=== PATIENT | male | born 1960 | race American Indian/Alaskan Native ===

== ENCOUNTER 2018-03-24 11:49 | Inpatient (IN) | payer OTHER ==
[2018-03-24 12:04] VITALS: BMI 29.8
--- NOTE | 2018-03-24 12:38 | ED PDOC ---
HPI: Psych/Substance Abuse Time Seen by Provider: 03/24/18 12:15 Chief Complaint (Nursing): Psychiatric Evaluation Chief Complaint (Provider): Psychiatric Evaluation History Per: Patient History/Exam Limitations: clinical condition (poor historian) Additional Complaint(s): 57 year old patient presents to emergency department for psychiatric evaluation. Patient reports that he is a schizophrenic and has bipolar disorder. He states that he has been off his medication for quiet some time and further states he is "trying to get his equilibrium back." Patient has been noted to be a poor historian with tangent thoughts. He reports to have auditory hallucinations but denies visual hallucinations. Patient further states, "He is afraid of what he may do." When asked if patient has SI or HI he responded with "Stop asking me these questions before I lose it".Other psychiatric symptoms: (+) auditory hallucinations, (?) suicidal ideation, (?) homicidal ideation (-) substance abuse. No physical complaints at present. PMD: refused to answer Past Medical History Reviewed: Historical Data, Nursing Documentation, Vital Signs Vital Signs: Last Vital Signs Temp 97 F L 03/24/18 12:22 Pulse 74 03/24/18 12:22 Resp 19 03/24/18 12:22 BP 117/77 03/24/18 12:22 Pulse Ox 97 03/24/18 12:22 - Medical History PMH: Bipolar Disorder, Schizophrenia - Surgical History Surgical History: No Surg Hx - Family History Family History: States: Unknown Family Hx - Home Medications Home Medications: Ambulatory Orders Medication Instructions Recorded Famotidine [Acid Controller] 20 mg PO BID 03/24/18 Melatonin [Melatin] 3 mg PO HS 03/24/18 QUEtiapine [SEROquel] 300 mg PO HS 03/24/18 Thiamine [Vitamin B-1] 100 mg PO DAILY 03/24/18 - Allergies Allergies/Adverse Reactions: Allergies Allergy/AdvReac Type Severity Reaction Status Date / Time No Known Allergies Allergy Verified 03/24/18 12:29 Review of Systems ROS Statement: Except As Marked, All Systems Reviewed And Found Negative Psych: Positive for: Psychosis ((+) auditory hallucinations) Physical Exam - Reviewed Nursing Documentation Reviewed: Yes Vital Signs Reviewed: Yes - Physical Exam Comments: GENERAL APPEARANCE: Patient is awake, alert; agitated, uncooperative with questions, has poor hygiene. SKIN: Warm, dry; (-) cyanosis ENMT: Mucous membranes moist. Airway patent: (-) stridor. NECK: Supple HEART AND CARDIOVASCULAR: (-) irregularity CHEST AND RESPIRATORY: (-) rales, (-) rhonchi, (-) wheezes; breath sounds equal bilaterally. Respirations even and nonlabored. ABDOMEN: Soft, (-) distention, (-) tenderness, (-) guarding. NEURO AND PSYCH: (+) tangent thoughts. Mental status as above, (-) facial asymmetry. Gait: steady. Speech: clear. - Laboratory Results Result Diagrams: 03/24/18 15:25 03/24/18 15:25 - ECG O2 Sat by Pulse Oximetry: 97 (RA) Pulse Ox Interpretation: Normal Medical Decision Making Medical Decision Making: Time: 12:30 Impression: Schizophrenia and bipolar disorder Plan: --Crisis evaluation --1:1 observation 13:05 Crisis is evaluating patient at bedside. 1400 On re-evaluation, patient appears preoccupied. Patient is speaking to himself. No distress noted. 1505 Per crisis evaluation, patient to be admitted for schizoaffective disorder, per Dr Wagner. CBC, CMP, Serum Alcohol, U/A, Urine Drug Screen, CXR, and EKG ordered. 1545 CBC and CMP unremarkable. Serum alcohol <10. Patient tolerating PO intake on re-evaluation, resting comfortably. 1557 EKG: NSR at 71 bpm, (-) ST elevations. QTc: 428 ms. 1725 CXR Date of service: 03/24/2018 HISTORY: psych admission COMPARISON: No prior. FINDINGS: LUNGS: No active pulmonary disease. PLEURA: No significant pleural effusion identified, no pneumothorax apparent. CARDIOVASCULAR: No aortic atherosclerotic calcification present. Normal cardiac size. No pulmonary vascular congestion. OSSEOUS STRUCTURES: No significant abnormalities. VISUALIZED UPPER ABDOMEN: Normal. OTHER FINDINGS: None. IMPRESSION: No acute cardiopulmonary disease appreciated. 1740 U/A (-) evidence of UTI Urine Drug Screen: Negative Patient is medically stable for psychiatric admission. Arrangements made for admission, patient agreeable to admission. Vitals stable. Scribe Attestation: Documented by Larry Crook, acting as a scribe for Shobha Malagon Provider Scribe Attestation: All medical record entries made by the Scribe were at my direction and personally dictated by me. I have reviewed the chart and agree that the record accurately reflects my personal performance of the history, physical exam, medical decision making, and the department course for this patient. I have also personally directed, reviewed, and agree with the discharge instructions and disposition. Disposition - Clinical Impression Clinical Impression: Schizoaffective disorder - Patient ED Disposition Is Patient to be Admitted: Yes Counseled Patient/Family Regarding: Studies Performed, Diagnosis - Disposition Disposition Time: 17:40 Condition: FAIR - Pt Status Changed To: Hospital Disposition Of: Inpatient - Admit Certification Admit to Inpatient:: After my assessment, the patient will require hospitalization for at least two midnights. This is because of the severity of symptoms shown, intensity of services needed, and/or the medical risk in this patient being treated as an outpatient. - POA Present On Arrival: None Results - Diagnostic Imaging Results Radiology Results Chest X-Ray 03/24/18 15:09 IMPRESSION: No acute cardiopulmonary disease appreciated. - Lab Results Lab Results: 03/24/18 03/24/18 03/24/18 17:09 17:09 15:25 WBC RBC Hgb Hct MCV MCH MCHC RDW Plt Count MPV Neut % (Auto) Lymph % (Auto) Moore % (Auto) Eos % (Auto) Baso % (Auto) Neut # (Auto) Lymph # (Auto) Moore # (Auto) Eos # (Auto) Baso # (Auto) Sodium 139 Potassium 3.6 Chloride 105 Carbon Dioxide 26 Anion Gap 12 BUN 16 Creatinine 1.1 Est GFR ( Amer) > 60 Est GFR (Non-Af Amer) > 60 Random Glucose 99 Calcium 8.7 Total Bilirubin 0.2 AST 47 ALT 32 Alkaline Phosphatase 72 Total Protein 6.7 Albumin 3.5 Globulin 3.2 Albumin/Globulin Ratio 1.1 Urine Color Yellow Urine Clarity Slighty-cloudy Urine pH 5.0 Ur Specific [place] 1.025 Urine Protein 30 Urine Glucose (UA) Neg Urine Ketones Negative Urine Blood Negative Urine Nitrate Negative Urine Bilirubin Negative Urine Urobilinogen 2.0 Ur Leukocyte Esterase Neg Urine RBC (Auto) 2 Urine Microscopic WBC 1 Urine Bacteria Rare Urine Opiates Screen Negative Urine Methadone Screen Negative Ur Barbiturates Screen Negative Ur Phencyclidine Scrn Negative Ur Amphetamines Screen Negative U Benzodiazepines Scrn Negative U Oth Cocaine Metabols Negative U Cannabinoids Screen Negative Alcohol, Quantitative < 10 03/24/18 15:25 WBC 5.2 RBC 4.06 L Hgb 11.6 L Hct 36.0 MCV 88.7 MCH 28.7 MCHC 32.3 L RDW 15.9 H Plt Count 113 L MPV 9.0 Neut % (Auto) 53.7 Lymph % (Auto) 29.8 Moore % (Auto) 14.5 H Eos % (Auto) 1.4 Baso % (Auto) 0.6 Neut # (Auto) 2.8 Lymph # (Auto) 1.6 Moore # (Auto) 0.8 Eos # (Auto) 0.1 Baso # (Auto) 0.0 Sodium Potassium Chloride Carbon Dioxide Anion Gap BUN Creatinine Est GFR ( Amer) Est GFR (Non-Af Amer) Random Glucose Calcium Total Bilirubin AST ALT Alkaline Phosphatase Total Protein Albumin Globulin Albumin/Globulin Ratio Urine Color Urine Clarity Urine pH Ur Specific [place] Urine Protein Urine Glucose (UA) Urine Ketones Urine Blood Urine Nitrate Urine Bilirubin Urine Urobilinogen Ur Leukocyte Esterase Urine RBC (Auto) Urine Microscopic WBC Urine Bacteria Urine Opiates Screen Urine Methadone Screen Ur Barbiturates Screen Ur Phencyclidine Scrn Ur Amphetamines Screen U Benzodiazepines Scrn U Oth Cocaine Metabols U Cannabinoids Screen Alcohol, Quantitative
[2018-03-24 15:27] LABS: BASO % 0.6 % (0.0-2.0); EOS # 0.1 K/uL (0.0-0.7); EOS % 1.4 % (0.0-4.0); HEMOGLOBIN 11.6 g/dL (12.0-18.0); LYMPH # 1.6 K/uL (1.0-4.3); LYMPH % 29.8 % (20.0-40.0); MEAN CELL VOLUME 88.7 fl (80.0-94.0); MEAN CORPUSCULAR HEMOGLOBIN 28.7 pg (27.0-31.0); MEAN CORPUSCULAR HGB CONC 32.3 g/dL (33.0-37.0); MONO # 0.8 K/uL (0.0-0.8); MONO % 14.5 % (0.0-10.0); NEUT # 2.8 K/uL (1.8-7.0); NEUT % 53.7 % (50.0-75.0); NRBC % 0.1 % (0.0-0.0); RBC 4.06 Mil/uL (4.40-5.90); RED CELL DISTRIBUTION WIDTH 15.9 % (11.5-14.5); WHITE BLOOD COUNT 5.2 K/uL (4.8-10.8)
[2018-03-24 15:38] LABS: ALB/GLOB RATIO 1.1 (1.0-2.1); ALBUMIN 3.5 g/dL (3.5-5.0); ALT/SGPT 32 U/L (21-72); AST/SGOT 47 U/L (17-59); BLOOD UREA NITROGEN 16 mg/dl (9-20); CALCIUM 8.7 mg/dL (8.4-10.2); GFR NON-AFRICAN AMERICAN > 60
--- NOTE | 2018-03-24 16:28 | RAD ---
Date of service: 03/24/2018 HISTORY: psych admission COMPARISON: No prior. FINDINGS: LUNGS: No active pulmonary disease. PLEURA: No significant pleural effusion identified, no pneumothorax apparent. CARDIOVASCULAR: No aortic atherosclerotic calcification present. Normal cardiac size. No pulmonary vascular congestion. OSSEOUS STRUCTURES: No significant abnormalities. VISUALIZED UPPER ABDOMEN: Normal. OTHER FINDINGS: None. IMPRESSION: No acute cardiopulmonary disease appreciated.
[2018-03-24 17:33] LABS: URINE BACTERIA RARE (<OCC); URINE BILIRUBIN NEGATIVE (NEGATIVE); URINE BLOOD NEGATIVE (NEGATIVE); URINE CLARITY SLIGHTY-CLOUDY (Clear); URINE COLOR YELLOW (YELLOW); URINE GLUCOSE (UA) NEG (NEGATIVE); URINE LEUKOCYTE ESTERASE NEG Leu/uL (Negative); URINE PROTEIN 30 mg/dL (NEGATIVE)
[2018-03-24 17:35] LABS: BARBITURATES, UR NEGATIVE (NEGATIVE); BENZODIAZEPINES, UR NEGATIVE (NEGATIVE); OPIATES, UR NEGATIVE (NEGATIVE); PHENCYCLIDINE, UR NEGATIVE (NEGATIVE)
[2018-03-24] MEDS ORDERED: Magnesium Hydroxide Susp 30 ml UD PO PRN (20:20)
[2018-03-24] MEDS ORDERED: Alum-Mag Hydrox-Simethicone Susp (30 mL) PO PRN (20:20)
[2018-03-24 20:34] VITALS: O2SAT 97
[2018-03-24] MEDS: DiphenhydrAMINE 50 mg/ml Inj IM PRN (20:37)
--- NOTE | 2018-03-24 21:03 | PCM.BM ---
<Shahnaz Simon - Last Filed: 03/24/18 20:55> Treatment Plan Problems - Problems identified on initial assessmt Agitated/Aggressive Behavior Date Initiated: 03/24/18 Time Initiated: 20:55 Assessment reference: NA Status: Active High Risk for Violence Date Initiated: 03/24/18 Time Initiated: 21:03 Assessment reference: NA Status: Active Ineffective Impulse Control Date Initiated: 03/24/18 Time Initiated: 21:03 Assessment reference: NA Status: Active Medication Nonadherence Date Initiated: 03/24/18 Time Initiated: 21:04 Assessment reference: NA Status: Active Treatment assets and liabiliti Patient Assests: self-reliant, ADL independent, physically healthy, negotiates basic needs, cognitively intact Patient Liabilities: live alone, financial problems, poor support system - Milieu Protocol Maintain good personal hygiene: daily Encourage regular showers, other Remind patient to perform daily oral care (prn), other Assist patient to perform ADL's (prn) Conduct patient checks and document Observation sheet: Q15 minutes Maintain personal safety: every shift Educate patient to report safety concerns to staff, every shift Monitor environment for contraband/sharps Medication safety: Monitor for expected outcome, potential side effects: every shift, Assess barriers to learning: every shift, Assess readiness for medication education: every shift <Arlyn Aparicio - Last Filed: 03/27/18 10:41> Treatment assets and liabiliti Patient Assests: resourceful, self-reliant, negotiates basic needs Patient Liabilities: relationship conflicts, medical problems Family Contact Family involvement: Famliy/SO not involved Family contact: Patient declines to allow family contact at present - Goals for Treatment Patient goals for treatment: Patient to continue stabilization on 3NP through medication management and group/supportive therapy to address paranoia/delusional thinking, improve organization of thought process/mood lability, and eliminate AH. Patient to be encouraged to attend groups regularly to promote self-awareness, reality testing, and improve insight, compliance, coping skills and self-esteem. Patient to be provided with referral for appropriate level of aftercare to reduce risk of future hospitalizations and ensure safety in the community. Pt. identified wanting housing as tx goal. Discharge/Continuing Care - Education Needs Education Needs: Patient Medication, Patient Diagnosis/Disease Process, Patient Coping Skills, Patient Anger Management skills, Patient Community resources, Patient Activities of Daily Living, Patient Aftercare Safety Plan - Discharge Discharge Criteria: Tolerates medication w/o severe side effects, Free of paranoid thoughts, Free of agitation, Normal sleep pattern, Ability to care for self, Reduction of target symptoms Discharge to:: Snf - Treatment Team Participation Patient/Family/SO Statement: 03/27/18 10:43 Patient attended tx team on 03/26 to discuss progress on 3NP and tx goals. Pt. presented as disorganized and tangential. Pt. presented with loosened associations and expressed paranoia towards staff. Pt. irritable and verbally aggressive through-out tx team, declining to provide necessary collateral information regarding precursors to hospitalizations, psychiatric sxs, or psychiatric hx. Pt. perseverating on housing, demanding placement. Pt. discharge focused, demanding discharge if housing could not be secured. Psychoeducation regarding nature of tx provided on 3NP provided. Pt. minimally receptive to feedback. Pt. refused to sign tx plan and was [place] [facility] [place]. Discussed with Family/SO: No <Gloria Singh - Last Filed: 03/27/18 12:32> - Diagnosis (1) Psychosis Status: Acute Interventions: pharmacotherapy 03/27/18 12:31
[2018-03-25 10:14] LABS: T4 5.78 ug/dl (5.5-11.0)
--- NOTE | 2018-03-25 12:03 | CP.PCM.CON ---
History of Present Illness - History of Present Illness History of Present Illness: 57 yo male with history of schizophrenia and bipolar DO reported to have auditory hallucination. When interviewed became very upset after being asked about the amputations of all the toes on both his feet. Angrily refused further interview and examination. Review of Systems - Review of Systems Systems not reviewed;Unavailable: Uncooperative Past Patient History - Past Social History Smoking Status: Unknown If Ever Smoked - CARDIAC Hx Cardiac Disorders: (unknown) Hx Hypertension: No - PULMONARY Hx Respiratory Disorders: No (unknown) Hx Tuberculosis: No - NEUROLOGICAL Hx Neurological Disorder: (unknown) HX Cerebrovascular Accident: No Hx Seizures: No - HEENT Hx HEENT Problems: (unknown) Other/Comment: read the bills of right with the paper far from his face - RENAL Hx Chronic Kidney Disease: (unknown) - ENDOCRINE/METABOLIC Hx Endocrine Disorders: (unknown) - HEMATOLOGICAL/ONCOLOGICAL Hx Blood Disorders: (unknown) Hx Cancer: No Hx Human Immunodeficiency Virus (HIV): No - INTEGUMENTARY Hx Dermatological Problems: (unknown) - MUSCULOSKELETAL/RHEUMATOLOGICAL Hx Musculoskeletal Disorders: (unknown) - GASTROINTESTINAL Hx Gastrointestinal Disorders: (unknown) - GENITOURINARY/GYNECOLOGICAL Hx Genitourinary Disorders: (unknown) Hx Sexually Transmitted Disorders: No - PSYCHIATRIC Hx Bipolar Disorder: Yes Hx Schizophrenia: Yes - SURGICAL HISTORY Hx Surgeries: Yes Other/Comment: bilat toe amputation - ANESTHESIA Hx Anesthesia: Yes Hx Anesthesia Reactions: No Meds Allergies/Adverse Reactions: Allergies Allergy/AdvReac Type Severity Reaction Status Date / Time No Known Allergies Allergy Verified 03/24/18 12:29 - Medications Medications: Current Medications Acetaminophen (Tylenol 325mg Tab) 650 mg PO Q4 PRN PRN Reason: pain 4-7 Al Hydrox/Mg Hydrox/Simethicone (Maalox Plus 30 Ml) 30 ml PO Q4 PRN PRN Reason: Dyspepsia Diphenhydramine HCl (Benadryl) 50 mg IM Q6 PRN PRN Reason: Extrapyramidal S/S Unable PO Last Admin: 03/24/18 20:37 Dose: 50 mg Diphenhydramine HCl (Benadryl) 50 mg PO Q6 PRN PRN Reason: Extrapyramidal Symptoms Diphenhydramine HCl (Benadryl) 50 mg PO HS PRN PRN Reason: Sleep Haloperidol (Haldol) 5 mg PO Q4 PRN PRN Reason: Agitation Haloperidol Lactate (Haldol) 5 mg IM Q4 PRN PRN Reason: Agitation, Unable to Take PO Last Admin: 03/24/18 20:38 Dose: 5 mg Lorazepam (Ativan) 2 mg IM Q8 PRN PRN Reason: Agitation Last Admin: 03/24/18 20:37 Dose: 2 mg Lorazepam (Ativan) 1 mg PO Q6 PRN PRN Reason: anxiety/agitation Magnesium Hydroxide (Milk Of Magnesia) 30 ml PO HS PRN PRN Reason: Constipation Results - Vital Signs Recent Vital Signs: Last Vital Signs Temp 97.7 F 03/25/18 09:00 Pulse 68 03/25/18 09:00 Resp 18 03/25/18 09:00 BP 117/66 03/25/18 09:00 Pulse Ox 97 03/24/18 20:38 - Labs Result Diagrams: 03/24/18 15:25 03/24/18 15:25 Labs: Laboratory Results - last 24 hr 03/24/18 03/24/18 03/24/18 15:25 15:25 17:09 WBC 5.2 RBC 4.06 L Hgb 11.6 L Hct 36.0 MCV 88.7 MCH 28.7 MCHC 32.3 L RDW 15.9 H Plt Count 113 L MPV 9.0 Neut % (Auto) 53.7 Lymph % (Auto) 29.8 Nicholas % (Auto) 14.5 H Eos % (Auto) 1.4 Baso % (Auto) 0.6 Neut # (Auto) 2.8 Lymph # (Auto) 1.6 Nicholas # (Auto) 0.8 Eos # (Auto) 0.1 Baso # (Auto) 0.0 Sodium 139 Potassium 3.6 Chloride 105 Carbon Dioxide 26 Anion Gap 12 BUN 16 Creatinine 1.1 Est GFR ( Amer) > 60 Est GFR (Non-Af Amer) > 60 Random Glucose 99 Calcium 8.7 Total Bilirubin 0.2 AST 47 ALT 32 Alkaline Phosphatase 72 Total Protein 6.7 Albumin 3.5 Globulin 3.2 Albumin/Globulin Ratio 1.1 Triglycerides Cholesterol LDL Cholesterol Direct HDL Cholesterol Thyroxine (T4) TSH 3rd Generation Urine Color Urine Clarity Urine pH Ur Specific [place] Urine Protein Urine Glucose (UA) Urine Ketones Urine Blood Urine Nitrate Urine Bilirubin Urine Urobilinogen Ur Leukocyte Esterase Urine RBC (Auto) Urine Microscopic WBC Urine Bacteria Urine Opiates Screen Negative Urine Methadone Screen Negative Ur Barbiturates Screen Negative Ur Phencyclidine Scrn Negative Ur Amphetamines Screen Negative U Benzodiazepines Scrn Negative U Oth Cocaine Metabols Negative U Cannabinoids Screen Negative Alcohol, Quantitative < 10 03/24/18 03/25/18 17:09 09:30 WBC RBC Hgb Hct MCV MCH MCHC RDW Plt Count MPV Neut % (Auto) Lymph % (Auto) [place] % (Auto) Eos % (Auto) Baso % (Auto) Neut # (Auto) Lymph # (Auto) Nicholas # (Auto) Eos # (Auto) Baso # (Auto) Sodium Potassium Chloride Carbon Dioxide Anion Gap BUN Creatinine Est GFR ( Amer) Est GFR (Non-Af Amer) Random Glucose Calcium Total Bilirubin AST ALT Alkaline Phosphatase Total Protein Albumin Globulin Albumin/Globulin Ratio Triglycerides 111 Cholesterol 144 LDL Cholesterol Direct 56 HDL Cholesterol 68 Thyroxine (T4) 5.78 TSH 3rd Generation 0.79 Urine Color Yellow Urine Clarity Slighty-cloudy Urine pH 5.0 Ur Specific [place] 1.025 Urine Protein 30 Urine Glucose (UA) Neg Urine Ketones Negative Urine Blood Negative Urine Nitrate Negative Urine Bilirubin Negative Urine Urobilinogen 2.0 Ur Leukocyte Esterase Neg Urine RBC (Auto) 2 Urine Microscopic WBC 1 Urine Bacteria Rare Urine Opiates Screen Urine Methadone Screen Ur Barbiturates Screen Ur Phencyclidine Scrn Ur Amphetamines Screen U Benzodiazepines Scrn U Oth Cocaine Metabols U Cannabinoids Screen Alcohol, Quantitative Assessment & Plan (1) Agitation Status: Acute Comment: psyche will be managing (2) Schizoaffective disorder Status: Acute
--- NOTE | 2018-03-25 13:11 | PCM.PSYCH ---
Initial Psychiatric Evaluation - Initial Psychiatric Evaluation Type of Admission: Voluntary Legal Status: Capacity Chief Complaint (in patient's own words): i am bipolar Patient's Reaction to Hospitalization: pt is upset History of Present Illness and Precipitating Events: This is the ist 3NPadmission for this 57 yr old male with h/o schizoaffective disorder claiming to be admitted to [facility] and [facility] in past and recently moved here from [place] where was in trratment at [facility] and has become noncompliant with his psych meds seroquel 300 mg hs and decompensated and came to ER very disorganized and bizarre refusing to answer questions and becoming loud at times and admitted for psychotic agitation. Current Medications: Active Medications Generic Name Dose Route Start Last Admin Trade Name Freq PRN Reason Stop Dose Admin Acetaminophen 650 mg 03/24/18 20:20 Tylenol 325mg Tab PO Q4 PRN pain 4-7 Al Hydrox/Mg Hydrox/Simethicone 30 ml 03/24/18 20:20 Maalox Plus 30 Ml PO Q4 PRN Dyspepsia Diphenhydramine HCl 50 mg 03/24/18 20:20 03/24/18 20:37 Benadryl IM 50 mg Q6 PRN Administration Extrapyramidal S/S Unable PO Diphenhydramine HCl 50 mg 03/24/18 20:20 Benadryl PO Q6 PRN Extrapyramidal Symptoms Diphenhydramine HCl 50 mg 03/24/18 20:20 Benadryl PO HS PRN Sleep Haloperidol 5 mg 03/24/18 20:20 Haldol PO Q4 PRN Agitation Haloperidol Lactate 5 mg 03/24/18 20:20 03/24/18 20:38 Haldol IM 5 mg Q4 PRN Administration Agitation, Unable to Take PO Lorazepam 2 mg 03/24/18 20:24 03/24/18 20:37 Ativan IM 2 mg Q8 PRN Administration Agitation Lorazepam 1 mg 03/24/18 20:25 Ativan PO Q6 PRN anxiety/agitation Magnesium Hydroxide 30 ml 03/24/18 20:20 Milk Of Magnesia PO HS PRN Constipation Past Psychiatric History - [facility] Nature of Treatment: for schizoaffective disorder History of Abuse: denies History of ETOH/Drug Use: denies History of Family Illness: denies Pertinent Medical Hx (Current Medical&Sleep Prob, Allergies): Allergies Allergy/AdvReac Type Severity Reaction Status Date / Time No Known Allergies Allergy Verified 03/24/18 12:29 Famotidine [Acid Controller] 20 mg PO BID 03/24/18 Melatonin [Melatin] 3 mg PO HS 03/24/18 QUEtiapine [SEROquel] 300 mg PO HS 03/24/18 Thiamine [Vitamin B-1] 100 mg PO DAILY 03/24/18 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 Review of Systems - Review of Systems All systems: reviewed and no additional remarkable complaints except Mental Status Examination - Personal Presentation Personal Presentation: Looks stated age - Affect Affect: Constricted - Motor Activity Motor Activity: Psychomotor Agitation - Reliability in Providing Information Reliability in Providing Information: Poor, due to alteration in thoughts - Speech Speech: Disorganized - Mood Mood: Anxious - Formal Thought Process Formal Thought Process: Paranoia - Obsessions/Compulsions Obsessions: No Compulsions: No - Cognitive Functions Orientation: Person, Place, Situation, Time Sensorium: Alert Attention/Concentration: Easily distracted Abstract Thinking: [place] Estimate of Intelligence: Average Judgement: Imparied, as evidence by: Poor judgement, Imparied, as evidence by: Lack of insight into illness Memory: Recent intact, as evidence by: Other, Remote intact, as evidenced by: Other - Risk Risk: Diminished functioning - Strength & Assets Inventory Strength & Assets Inventory: Cooperative DSM 5 DX - DSM 5 DSM 5 Diagnosis: Schizoaffective disorder,bipolar type - Recommended/Plan of Treatment Treatment Recommendations and Plan of Treatment: Pt has agreed to start seroquel 50 mg daily and 300 mg hs,vitamin supplementation and engaging pt in therapy and groups. will get more collateral info regarding past history.
--- NOTE | 2018-03-25 19:00 | CARD ---
APPROVED REPORT Date of service: 03/24/2018 EKG Measurement Heart [id number] <Conclusion> Normal sinus rhythm with sinus arrhythmia Normal ECG
[2018-03-25] MEDS: DiphenhydrAMINE 50 mg/ml Inj IM PRN (21:58)
--- NOTE | 2018-03-26 11:01 | PCM.PYCHPN ---
Psychiatric Progress Note - Psychiatric Progress Note Patient seen today, length of contact: pt evaluated discussed with team chart reviewed Patient Chief Complaint: I NEED THINGS MY WAY OR I WANT TO LEAVE Problems Identified/Issues Discussed: Pt evaluated with treatment team, unkempt disheveled, uncooperative, loud irritable, domineering and hypervigilant affect, pt angry when asked about the reason he is in the hospital, paranoid and threatening, stating that if treatment team does not offer housing then he needs to be discharged, presenting with delusions of persecution towards staff, patient has been also verbally threatening towards staff cursing staff members and other patients , banging phones, refusing to be on a mood stabilizer and argumentative about taking medications , no insight into illness pt had to be chemically restrained for safety of self and others DSM 5 Symptoms Update: schizoaffective disorder bipolar antisocial personality disorder Medication Change: Yes (start depakote) Medical Record Reviewed: Yes Mental Status Examination - Cognitive Function Orientation: Person, Place, Situation, Time Attention: Poor Concentration: Poor Association: Loose Fund of Knowledge: Poor Decription of patient's judgement and insights: poor insight and judgment - Mood Mood: Anxious Additional comments: angry - Affect Additional comments: labile threatening and domineering - Speech Speech: Loud, Pressured - Formal Thought Process Formal Thought Process: Paranoia, Circumstantial - Suicidal Ideation Suicidal Ideation: No - Homicidal Ideation Homicidal Ideation: Yes Goal/Treatment Plan - Goal/Treatment Plan Need for Continued Stay: Discharge may exacerbated symptoms Progress Toward Problem(s) and Goals/Treatment Plan: pt at current mental status, loud verbally threatening, aggressive labile, refusing mood stabilizers and requesting to be discharged pt is danger to self and others , will be screened for involuntary admission for stabilization continue with seroquel 350mg start depakote 1500mg ecourage medication compliance
[2018-03-26] MEDS: Divalproex 500 mg DR(BID formulation) PO SCH ×2 (13:41→21:00)
[2018-03-27] MEDS: Divalproex 500 mg DR(BID formulation) PO SCH ×2 (09:13→21:19)
--- NOTE | 2018-03-27 12:49 | PCM.PYCHPN ---
Psychiatric Progress Note - Psychiatric Progress Note Patient seen today, length of contact: pt evaluated discussed with team chart reviewed Patient Chief Complaint: I have my own perception of the outside Problems Identified/Issues Discussed: Pt evaluated, less irritable, more cooperative , thought process, disorganized, with loose association, tangential speech, grandiose delusions believing he has multiple professions, continues to have pressured and overproductive speech with limited insight into illness, denied any current command hallucinations, denied suicidal or homicidal ideation DSM 5 Symptoms Update: schizoaffective disorder bipolar type Medication Change: Yes (increase seroquel) Medical Record Reviewed: Yes Mental Status Examination - Cognitive Function Orientation: Person, Place, Situation, Time Attention: WNL Concentration: Poor Association: Loose Fund of Knowledge: Poor Decription of patient's judgement and insights: poor insight and judgment - Mood Mood: Anxious - Affect Affect: Constricted - Speech Speech: Loud, Pressured - Formal Thought Process Formal Thought Process: Paranoia, Circumstantial Psychotic Thoughts and Behaviors: grandiose delusions - Suicidal Ideation Suicidal Ideation: No - Homicidal Ideation Homicidal Ideation: No Goal/Treatment Plan - Goal/Treatment Plan Need for Continued Stay: Discharge may exacerbated symptoms Progress Toward Problem(s) and Goals/Treatment Plan: increase seroquel 450mg increase depakote 1500mg encourage medication compliance group and supportive therapy podiatry consult
[2018-03-27] MEDS: DiphenhydrAMINE 50 mg/ml Inj IM PRN (15:45)
--- NOTE | 2018-03-27 16:51 | PCM.PYCHPN ---
Psychiatric Progress Note - Psychiatric Progress Note Patient seen today, length of contact: pt evaluated discussed with team chart reviewed Patient Chief Complaint: I have my own perception of the outside Problems Identified/Issues Discussed: Pt evaluated with treatment team, unkempt disheveled, uncooperative, loud irritable, domineering and hypervigilant affect, pt angry when asked about the reason he is in the hospital, paranoid and threatening, stating that if treatment team does not offer housing then he needs to be discharged, presenting with delusions of persecution towards staff, patient has been also verbally threatening towards staff cursing staff members and other patients , banging phones, refusing to be on a mood stabilizer and argumentative about taking medications , no insight into illness pt had to be chemically restrained for safety of self and others Medication Change: Yes (start depakote) Medical Record Reviewed: Yes Mental Status Examination - Cognitive Function Orientation: Person, Place, Situation, Time Attention: Poor Concentration: Poor Association: Loose Fund of Knowledge: Poor Decription of patient's judgement and insights: poor insight and judgment - Mood Mood: Anxious - Affect Affect: Constricted - Speech Speech: Loud, Pressured - Formal Thought Process Formal Thought Process: Paranoia, Circumstantial - Suicidal Ideation Suicidal Ideation: No - Homicidal Ideation Homicidal Ideation: Yes Goal/Treatment Plan - Goal/Treatment Plan Need for Continued Stay: Discharge may exacerbated symptoms Progress Toward Problem(s) and Goals/Treatment Plan: pt at current mental status, loud verbally threatening, aggressive labile, refusing mood stabilizers and requesting to be discharged pt is danger to self and others , will be screened for involuntary admission for stabilization continue with seroquel 350mg start depakote 1500mg ecourage medication compliance
[2018-03-28] MEDS ORDERED: Divalproex 500 mg DR(BID formulation) PO SCH (09:00)
--- NOTE | 2018-03-28 16:58 | PCM.PYCHPN ---
Psychiatric Progress Note - Psychiatric Progress Note Patient seen today, length of contact: pt evaluated discussed with team chart reviewed Patient Chief Complaint: I have my own thoughts about housing Problems Identified/Issues Discussed: Pt evaluated loud irritable angry, internally preoccupied, with paranoid and grandiose delusions, continues to be verbally threatening, denied command hallucinations, poor insight into illness DSM 5 Symptoms Update: schizoaffective disorder bipolar type Medication Change: No Medical Record Reviewed: Yes Mental Status Examination - Cognitive Function Orientation: Person, Place, Situation, Time Attention: Poor Concentration: Poor Association: Loose Fund of Knowledge: Poor Decription of patient's judgement and insights: poor insight and judgment - Mood Mood: Anxious - Affect Affect: Constricted - Speech Speech: Loud, Pressured - Formal Thought Process Formal Thought Process: Paranoia, Circumstantial - Suicidal Ideation Suicidal Ideation: No - Homicidal Ideation Homicidal Ideation: Yes Goal/Treatment Plan - Goal/Treatment Plan Need for Continued Stay: Discharge may exacerbated symptoms Progress Toward Problem(s) and Goals/Treatment Plan: pt at current mental status, loud verbally threatening, aggressive labile, refusing mood stabilizers and requesting to be discharged pt is danger to self and others , screened and accepted for involuntary admission for stabilization continue with seroquel 350mg depakote 2000mg ecourage medication compliance
[2018-03-28 18:48] VITALS: BP 123/72; PULSE 91; RESP 18; TEMP 97.7
== END 2018-03-28 19:45 | DRG 750 ==
LOC: H.ER 11:49 → H.ERHOLD 17:38 → H.PSYCH 20:16
PROVIDERS: ADMIT Psychiatry & Neurology Psychiatry; ATTEND Psychiatry & Neurology Psychiatry
PROC: GZHZZZZ Group Psychotherapy (ICD-10-PCS; principal; 2018-03-24)
PROC: GZ56ZZZ Individual Psychotherapy, Supportive (ICD-10-PCS; 2018-03-24)
DX: F25.0 Schizoaffective disorder, bipolar type (principal); R45.850 Homicidal ideations; Z91.14 Patient's other noncompliance with medication regimen